=== PATIENT | male | born 1950 | race Two or more races ===

== ENCOUNTER 2023-02-27 09:17 | Emergency (ER) | payer OTHER ==
[~2023-02-27] VITALS: Ht 177.8 cm; Wt 77.1 kg
[2023-02-27] MEDS ORDERED: PLAVIX75 MG (10:04)
[2023-02-27] MEDS ORDERED: CARDURA8 MG PO (10:04)
[2023-02-27] MEDS ORDERED: ATORVASTATIN CA20 MG PO (10:05)
[2023-02-27] MEDS ORDERED: EPLERENONE50 MG PO (10:05)
[2023-02-27] MEDS ORDERED: ZYRTEC10 M3 PO (10:05)
[2023-02-27] MEDS ORDERED: AMLODIPINE-OLM1 EAC3 (10:05)
[2023-02-27] MEDS ORDERED: SINGULAIR10 MG PO (10:05)
[2023-02-27] MEDS ORDERED: HYDRALAZINE HCL50 MG PO (10:13)
[2023-02-27] MEDS ORDERED: ISOSORBIDE DINI30 MG (10:14)
[2023-02-27] MEDS ORDERED: CLONAZEPAM0.5 MG PO (10:14)
[2023-02-27] MEDS ORDERED: ASA81 MG PO (10:15)
[2023-02-27] MEDS ORDERED: CARDURA XL8 MG (10:15)
== END 2023-02-27 13:23 | disposition home or self-care (01) ==
LOC: ER 09:17
DX: R42 Dizziness and giddiness (principal); G44.89 Other headache syndrome; I10 Essential (primary) hypertension; Z88.0 Allergy status to penicillin; Z91.013 Allergy to seafood

== ENCOUNTER 2023-09-26 07:30 | Emergency (ER) | payer OTHER ==
[~2023-09-26] VITALS: Ht 180.3 cm; Wt 95.3 kg
[~2023-09-26 07:30] MED LIST: AMLODIPINE-OLM1 EAC3; ASA81 MG PO; ATORVASTATIN CA20 MG PO; CARDURA XL8 MG; CARDURA8 MG PO; CLONAZEPAM0.5 MG PO; EPLERENONE50 MG PO; HYDRALAZINE HCL50 MG PO; ISOSORBIDE DINI30 MG; PLAVIX75 MG; SINGULAIR10 MG PO; ZYRTEC10 M3 PO
[2023-09-26] MEDS ORDERED: HYDROCHLOROTH12.5 MG (07:37)
[2023-09-26] MEDS ORDERED: TENORMIN25 MG (07:37)
== END 2023-09-26 22:26 | disposition home or self-care (01) ==
LOC: ER 07:30
DX: I10 Essential (primary) hypertension (principal); I25.10 Atherosclerotic heart disease of native coronary artery without angina pectoris; J45.909 Unspecified asthma, uncomplicated; Z91.013 Allergy to seafood; Z88.0 Allergy status to penicillin; Z85.89 Personal history of malignant neoplasm of other organs and systems; F41.8 Other specified anxiety disorders
CPT/HCPCS: 93005; 96365; 99284; J3490

== ENCOUNTER 2024-09-19 10:29 | Emergency (ER) | payer OTHER ==
[~2024-09-19] VITALS: Ht 177.8 cm; Wt 88.5 kg
[~2024-09-19 10:29] MED LIST changes: +HYDROCHLOROTH12.5 MG; +TENORMIN25 MG
[2024-09-19] MEDS ORDERED: NIFEDIPINE ER60 M1 PO (11:37)
[2024-09-19] MEDS ORDERED: HYDRALAZINE HC100 MG PO (11:37)
[2024-09-19] MEDS ORDERED: ISOSORBIDE MONO60 MG PO (11:38)
[2024-09-19] MEDS ORDERED: PLAVIX75 MG PO (11:38)
[2024-09-19] MEDS ORDERED: ATACAND32 MG PO (11:38)
[2024-09-19] MEDS ORDERED: CARDURA XL4 MG PO (11:38)
[2024-09-19] MEDS ORDERED: INSPRA50 MG PO (11:38)
[2024-09-19] MEDS ORDERED: MIRTAZAPINE30 M1 PO (11:39)
[2024-09-19] MEDS ORDERED: FAMOTIDINE/PF 20 MG/2 ML VIAL IV PUSH STA (12:32)
[2024-09-19 13:02] LABS: HEMATOCRIT 38.6 % (39.0-48.0); HEMOGLOBIN 13.4 g/dL (13-16.00); MEAN CELL VOLUME 88.7 fL (80.0-100.00); MEAN CORPUSCULAR HEMOGLOBIN 30.8 pg (27.00-32.0); MEAN CORPUSCULAR HGB CONC 34.8 g/dl (32.0-36.0); PLATELET COUNT 249 K/uL (150-450); RED BLOOD COUNT 4.35 M/uL (4.00-6.00); RED CELL DISTRIBUTION WIDTH 15.7 % (11.5-14.5)
[2024-09-19 13:34] LABS: PH,URINE 7.5 (5.0-8.0); URINE APPEARANCE Cloudy; URINE BILIRRUBIN Negative (NEGATIVE); URINE BLOOD Negative; URINE COLOR Dark Yellow; URINE GLUCOSE Negative (NEGATIVE); URINE KETONE Trace (NEGATIVE); URINE LEUKOCYTE Negative; URINE NITRATE Negative
[2024-09-19 13:37] LABS: URINE BACTERIA 20.8 uL (0.0-1933); URINE EPITHELIAL CELLS 4.2 uL (0.0-38.8); URINE RBC 2.6 uL (0.0-20.8); URINE WBC 3.6 uL (0.0-23.2)
[2024-09-19 13:46] LABS: URINE CAST 0.44 uL (0.0-1.40); URINE PROTEIN 100 (NEGATIVE)
[2024-09-19 14:17] LABS: ALBUMIN 3.6 gm/dL (3.4-5.0); BILIRUBIN TOTAL 0.49 mg/dL (0.3-1.2); BILIRUBIN,CONJUGATED 0.12 mg/dL (0.0-0.2); BILIRUBIN,UNCONJUGATED 0.37 mg/dL (0.0-0.6); CREATININE SERUM 0.84 mg/dL (0.70-1.30); GFR 89.32; GLOBULINA 3.5 G/DL (2.4-3.5); TOTAL PROTEIN 7.1 gm/dL (6.4-8.2)
[2024-09-19 14:23] LABS: POTASSIUM 2.97 mEq/L (3.5-5.1)
[2024-09-19] MEDS ORDERED: ONDANSETRON HCL 2 MG/ML VIAL IM STA (14:38)
[2024-09-19] MEDS ORDERED: POTASSIUM CHLORIDE 10 MEQ CAPSULE PO STA (15:58)
== END 2024-09-19 16:49 | disposition home or self-care (01) ==
LOC: ER 10:31
PROVIDERS: General Practice
DX: R42 Dizziness and giddiness (principal); E87.6 Hypokalemia; Z88.0 Allergy status to penicillin; Z91.013 Allergy to seafood

== ENCOUNTER → 2025-03-15 | Emergency (ER) | payer OTHER ==
[~2025-03-15] VITALS: Ht 180.3 cm; Wt 90.7 kg
[~2025-03-15] MED LIST changes: +ATACAND32 MG PO; +CARDURA XL4 MG PO; +CLONAZEPAM0.5 M1 PO; +ESCITALOPRA5 MG/5 ML PO; +HYDRALAZINE HC100 MG PO; +INSPRA50 MG PO; +ISOSORBIDE MONO60 MG PO; +MIRTAZAPINE30 M1 PO; +NIFEDIPINE ER60 M1 PO; +PLAVIX75 MG PO; +REMERON15 MG PO
[2025-03-15 16:12] LABS: PH,URINE 6.5 (5.0-8.0); URINE APPEARANCE Clear; URINE BILIRRUBIN Negative (NEGATIVE); URINE BLOOD Negative; URINE COLOR Yellow; URINE GLUCOSE Negative (NEGATIVE); URINE KETONE 15 (NEGATIVE); URINE LEUKOCYTE Negative; URINE NITRATE Negative
[2025-03-15 16:13] LABS: URINE BACTERIA 6.1 uL (0.0-1933); URINE EPITHELIAL CELLS 2.9 uL (0.0-38.8)
[2025-03-15 16:15] LABS: URINE CAST 0.44 uL (0.0-1.40); URINE PROTEIN 300 (NEGATIVE)
[2025-03-15 16:18] LABS: ALBUMIN 3.6 gm/dL (3.4-5.0); BILIRUBIN TOTAL 0.53 mg/dL (0.3-1.2); BILIRUBIN,CONJUGATED 0.12 mg/dL (0.0-0.2); BILIRUBIN,UNCONJUGATED 0.41 mg/dL (0.0-0.6); CALCIUM 8.7 mg/dL (8.5-10.1); CREATININE SERUM 0.96 mg/dL (0.70-1.30); GFR 76.36; POTASSIUM 3.35 mEq/L (3.5-5.1); TOTAL PROTEIN 7.5 gm/dL (6.4-8.2)
[2025-03-15 16:28] LABS: BASO % 0.7 % (0.1-1.2); EOS # 0.18 (0.04-0.54); EOS % 1.9 % (0.7-7.0); HEMATOCRIT 37.3 % (40.1-51.0); LYMPH # 1.22 (1.18-3.74); LYMPH % 12.6 % (19.3-53.1); MEAN CORPUSCULAR HEMOGLOBIN 28.5 pg (25.6-32.2); MONO # 0.93 (0.24-0.82); MONO % 9.6 % (4.7-12.5); NEUT # 7.26 (1.56-6.13); PLATELET COUNT 239 K/uL (163-369); RED BLOOD COUNT 4.56 M/uL (4.63-6.08); RED CELL DISTRIBUTION WIDTH 14.5 % (11.6-14.4)
== END | disposition home or self-care (01) ==
LOC: ER 13:33
PROVIDERS: General Practice
DX: R53.1 Weakness (principal); F41.9 Anxiety disorder, unspecified; I10 Essential (primary) hypertension; Z88.0 Allergy status to penicillin; Z91.013 Allergy to seafood

== ENCOUNTER 2025-06-16 10:19 | Emergency (ER) | payer OTHER ==
[~2025-06-16] VITALS: Ht 180.3 cm; Wt 99.8 kg
[2025-06-16] MEDS ORDERED: MONTELUKAST SOD10 MG PO (10:55)
[2025-06-16] MEDS ORDERED: PREDNISONE10 M2 PO (10:55)
[2025-06-16] MEDS ORDERED: FLUTICASONE-SA1 EAC4 IH (10:55)
[2025-06-16] MEDS ORDERED: BUSPIRONE HCL7.5 MG PO (10:55)
[2025-06-16] MEDS ORDERED: CLONAZEPAM 0.5 MG TABLET PO STA ×2 (11:30→15:20)
[2025-06-16 11:45] LABS: ABG PH 7.479 (7.35-7.45); ABG PO2 90.1 mmHg (80-100); BICARBONATE 25.2 mmol/l (23-25)
[2025-06-16 11:53] LABS: BASO % 0.2 % (0.1-1.2); EOS # 0.10 (0.04-0.54); EOS % 0.6 % (0.7-7.0); LYMPH # 0.78 (1.18-3.74); LYMPH % 4.4 % (19.3-53.1); MEAN PLATELET VOLUME 9.70 fl (9.4-12.4); MONO # 0.91 (0.24-0.82); MONO % 5.1 % (4.7-12.5); NEUT # 15.81 (1.56-6.13); NEUT % 89.0 % (34.0-71.1); RED CELL DISTRIBUTION WIDTH 14.4 % (11.6-14.4)
[2025-06-16 12:22] LABS: ALT/SGPT 46.0 U/L (12-78); AST/SGOT 21.0 U/L (15-37); BILIRUBIN TOTAL 0.47 mg/dL (0.3-1.2); BUN CREA RATIO 21.0 (7.0-25.0); CREATININE SERUM 0.96 mg/dL (0.70-1.30); GFR 76.36; GLOBULINA 3.7 G/DL (2.4-3.5); GLUCOSE FASTING 131.0 mg/dL (65-100); OSMOLALITY SERUM 295.0 MOSM/KG (275-295)
[2025-06-16 12:41] LABS: COVID-19 AG NEGATIVE (NEGATIVE)
[2025-06-16 13:23] LABS: URINE APPEARANCE Clear; URINE BILIRRUBIN Negative (NEGATIVE); URINE BLOOD Negative; URINE COLOR Yellow; URINE GLUCOSE Negative (NEGATIVE); URINE KETONE Trace (NEGATIVE); URINE LEUKOCYTE Negative; URINE NITRATE Negative; URINE UROBILINOGEN 0.2 E.U./dl
[2025-06-16 13:24] LABS: URINE BACTERIA 4.7 uL (0.0-1933); URINE EPITHELIAL CELLS 1.9 uL (0.0-38.8); URINE RBC 3.8 uL (0.0-20.8); URINE WBC 2.5 uL (0.0-23.2)
[2025-06-16 13:44] LABS: URINE CAST 0.14 uL (0.0-1.40); URINE PROTEIN 100 (NEGATIVE)
[2025-06-16 14:33] LABS: o2 21 %
== END 2025-06-16 15:44 | disposition home or self-care (01) ==
LOC: ER 10:19
PROVIDERS: General Practice
DX: R06.02 Shortness of breath (principal); Z91.013 Allergy to seafood; Z88.0 Allergy status to penicillin; Z20.822 Contact with and (suspected) exposure to COVID-19

== ENCOUNTER 2025-06-28 10:11 | Emergency (ER) | payer OTHER ==
[~2025-06-28] VITALS: Ht 180.3 cm; Wt 99.8 kg
[~2025-06-28 10:11] MED LIST changes: +BUSPIRONE HCL7.5 MG PO; +FLUTICASONE-SA1 EAC4 IH; +MONTELUKAST SOD10 MG PO; +PREDNISONE10 M2 PO
[2025-06-28 10:55] VITALS: BP 168/87; O2SAT 97
[2025-06-28] MEDS ORDERED: CLONAZEPAM 0.5 MG TABLET PO STA (12:08)
== END 2025-06-28 12:40 | disposition home or self-care (01) ==
LOC: ER 10:11
DX: F41.9 Anxiety disorder, unspecified (principal); I10 Essential (primary) hypertension; G47.30 Sleep apnea, unspecified; Z88.0 Allergy status to penicillin; Z91.013 Allergy to seafood